=== PATIENT | female | born 1995 | race African-American/Black ===

== ENCOUNTER 2016-09-02 20:07 | Emergency (ER) | payer MEDICAID ==
[~2016-09-02] VITALS: Ht 172.7 cm; Wt 71.7 kg
[~2016-09-02 20:07] MED LIST: ABILIFY5 MG PO; AVILIFY; LITHIUM CARBON600 MG; PROZAC20 M1; RISPERDAL0.5 MG PO; STRATTERA25 MG PO; VICODIN 500 MG-1 TA1 PO
[2016-09-02 20:38] VITALS: BP 102/64
--- NOTE | 2016-09-03 00:05 | NUR ---
PATIENT LEFT WITHOUT BEING SEEN BY DR. Ewing. NO FURTHER CARE PROVIDED FOR PATIENT.
== END 2016-09-03 00:05 | disposition left against medical advice (07) ==
LOC: MED 20:07
DX: J02.9 Acute pharyngitis, unspecified (principal); Z53.21 Procedure and treatment not carried out due to patient leaving prior to being seen by health care provider

== ENCOUNTER 2017-03-25 14:21 | Emergency (ER) | payer MEDICAID ==
[~2017-03-25] VITALS: Ht 170.2 cm; Wt 70.3 kg
[2017-03-25 14:32] VITALS: BP 102/54
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
--- NOTE | 2017-03-25 15:00 | NUR ---
DR HARTLEY EVALUATING AAO PT AT BEDSIDE
[2017-03-25 15:31] VITALS: BP 103/59
--- NOTE | 2017-03-25 15:31 | NUR ---
Patient discharged with v/s stable. Written and verbal after care instructions given and explained. Patient alert, oriented and verbalized understanding of instructions. Ambulatory with steady gait. All questions addressed prior to discharge. ID band removed. Patient advised to follow up with PMD. Rx of ibuprofen, prednisone, amoxicillin given. Patient educated on indication of medication including possible reaction and side effects. Opportunity to ask questions provided and answered.
== END 2017-03-25 15:31 | disposition home or self-care (01) ==
LOC: MED 14:21
DX: J03.90 Acute tonsillitis, unspecified (principal); Z88.8 Allergy status to other drugs, medicaments and biological substances; J45.909 Unspecified asthma, uncomplicated
CPT/HCPCS: 99283

== ENCOUNTER 2020-01-17 07:39 | Emergency (ER) | payer MEDICAID ==
[~2020-01-17] VITALS: Ht 172.7 cm; Wt 76.8 kg
[2020-01-17 07:47] VITALS: BP 125/80
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
--- NOTE | 2020-01-17 09:00 | NUR ---
PELVIC EXAM BY DR DELAROSA. 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
--- NOTE | 2020-01-17 09:47 | NUR ---
Patient discharged with v/s stable. Written and verbal after care instructions given and explained. Patient alert, oriented and verbalized understanding of instructions. Ambulatory with steady gait. All questions addressed prior to discharge. ID band removed. Patient advised to follow up with PMD. Rx of bactrim and motrin given. Patient educated on indication of medication including possible reaction and side effects. Opportunity to ask questions provided and answered.
[2020-01-20 06:07] LABS: CHLAMYDIA TRACHOMATIS AMP DNA Negative (Negative)
== END 2020-01-17 09:47 | disposition home or self-care (01) ==
LOC: MED 07:39
DX: S61.512A Laceration without foreign body of left wrist, initial encounter (principal); J45.909 Unspecified asthma, uncomplicated; N39.0 Urinary tract infection, site not specified; Z88.3 Allergy status to other anti-infective agents; Z90.49 Acquired absence of other specified parts of digestive tract; X99.9XXA Assault by unspecified sharp object, initial encounter; Y93.89 Activity, other specified; Y92.89 Other specified places as the place of occurrence of the external cause; Y99.8 Other external cause status
CPT/HCPCS: 12001; 36415; 81002; 81025; 87491; 90471; 90715; 99283